=== PATIENT | female | born 1965 | race Two or more races ===

== ENCOUNTER 2020-09-29 12:39 | Outpatient (CLI) | payer BC, MEDICARE | END 2020-09-29 23:59 | disposition home or self-care (01) | LOC: MSC 12:39 | PROVIDERS: ATTEND Internal Medicine | DX: N28.9 Disorder of kidney and ureter, unspecified (principal); E11.9 Type 2 diabetes mellitus without complications; Z79.4 Long term (current) use of insulin; R60.9 Edema, unspecified; I13.10 Hypertensive heart and chronic kidney disease without heart failure, with stage 1 through stage 4 chronic kidney disease, or unspecified chronic kidney disease; N18.4 Chronic kidney disease, stage 4 (severe); D63.1 Anemia in chronic kidney disease; R26.9 Unspecified abnormalities of gait and mobility; Z79.899 Other long term (current) drug therapy ==